=== PATIENT | female | born 1935 | race Caucasian/White ===

== ENCOUNTER 2022-02-22 19:19 | Emergency (ER) | payer MEDICARE, SELFPAY ==
[2022-02-22 19:34] VITALS: BP 180/82; PULSE 89; RESP 16; TEMP 36.7; O2SAT 99; BMI 22.0
[2022-02-22 19:40] VITALS: BP 171/81; PULSE 87; RESP 16; O2SAT 95
[2022-02-22 20:00] VITALS: BP 168/78; PULSE 87; RESP 16; O2SAT 99
--- NOTE | 2022-02-22 20:08 | ED.GENADULT ---
HPI - General Adult General Chief complaint: Unspecified Complaint, Adult Stated complaint: blood pressure, blood in R eye Time Seen by Provider: 02/22/22 19:53 History of Present Illness HPI narrative: This 87-year-old female comes in with concern about elevated blood pressure and noticed that the medial aspect of her right eye has some redness. She states that she feels completely normal and has no complaints of pain or any other symptoms. She is taking antihypertensive medication and following with her primary doctor who is watching her blood pressures. Related Data Home Medications Medication Instructions Recorded Confirmed amlodipine 5 mg tablet mg 02/22/22 atorvastatin 10 mg tablet mg 02/22/22 Previous Rx's Medication Instructions Recorded gabapentin 100 mg capsule 100 - 300 mg PO .HS #90 cap 02/21/22 Allergies Allergy/AdvReac Type Severity Reaction Status Date / Time No Known Drug Allergies Allergy Verified 02/22/22 19:38 Review of Systems Status of ROS: Reports: 10 or more systems reviewed and unremarkable except as noted in History and below Narrative: Constitutional: No fevers, no weight gain or loss. Eyes: No discharge. No vision changes. The medial aspect of the right eye has redness. HENT: No congestion, no sore throat, no ear pain. Cardiovascular: No chest pain, no palpitations. Respiratory: No shortness of breath, no wheezes, no cough. Gastrointestinal: No abdominal pain, no vomiting, no diarrhea. Genitourinary: No dysuria, no hematuria. Musculoskeletal: Normal range of motion. Skin: No rashes, no pruritis. Neurological: No dizziness, weakness, sensory change, speech change. Endo/Heme/Allergies: No bruising or bleeding. No polydipsia. Pysch: no suicidality, no anxiety, no insomnia. All other systems reviewed and are negative. [facility] Social History Smoking Status: Never smoker How often do you have a drink containing alcohol: never AUDIT-C Alcohol total score: 0 Non-prescribed substance use: denies use Exam Narrative: Exam Narrative: Constitutional: Well-developed, well-nourished, no acute distress. HEENT: Normocephalic, atraumatic. The right eye has a subconjunctival hematoma on the medial aspect. The iris and pupil appear normal. Funduscopic exam bilaterally is normal. Neck: Normal range of motion. Nontender. Supple. Heart: Regular. No murmurs. Normal rate. Intact distal pulses. Lungs: Clear to auscultation. No chest discomfort. No wheezes, rhonchi, or rales. Abdomen: Normal bowel sounds. Nontender. No rebound tenderness. Genitalia: Deferred. Back: No midline tenderness. Normal range of motion. Extremities: Normal range of motion. No injury. Skin: Intact. No rash. Warm. No erythema or pallor. Neurologic: No altered sensation. No weakness. Alert and oriented. Psychiatric: No suicidality. No anxiety or depression. No insomnia. Nursing notes and vitals signs are reviewed. Const: Vital Signs, click to edit/add: Vital Signs - 24 hr 02/22/22 19:34 Temperature 98.1 F Pulse Rate [Left P ulse Oximeter] 89 Respiratory Rate 16 Blood Pressure [Ri ght Upper Arm] 180/82 H Pulse Oximetry 99 Course Vital Signs Vital signs: Initial Vital Signs Temperature 98.1 F 02/22/22 19:34 Temperature Source Temporal Artery Scan 02/22/22 19:34 Pulse Rate 89 02/22/22 19:34 Respiratory Rate 16 02/22/22 19:34 Blood Pressure 180/82 H 02/22/22 19:34 Blood Pressure Mean 114 02/22/22 19:34 Blood Pressure Position Supine 02/22/22 19:34 Pulse Oximetry 99 02/22/22 19:34 Oxygen Delivery Method 02/22/22 19:34 Vital Signs Temperature 98.1 F 02/22/22 19:34 Pulse Rate 89 02/22/22 19:34 Respiratory Rate 16 02/22/22 19:34 Blood Pressure 180/82 H 02/22/22 19:34 Pulse Oximetry 99 02/22/22 19:34 Temperature 98.1 F 02/22/22 19:34 Pulse Rate 89 02/22/22 19:34 Respiratory Rate 16 02/22/22 19:34 Blood Pressure 180/82 H 02/22/22 19:34 Pulse Oximetry 99 02/22/22 19:34 Medical Decision Making MDM Narrative Medical decision making narrative: This patient comes in with redness in the medial aspect of her right eye and some elevated blood pressure. Her systolic blood pressure on arrival was 180 and this was trending downward slightly as she went about her stay here. I describe typical criteria used to diagnose and treat and manage elevated blood pressure. She will follow-up with her primary physician in this regard. As for the redness in her eye, she is having no visual changes in her funduscopic exam is normal. This is a subconjunctival hematoma that will resolve. Discharge Plan Discharge Clinical Impression: Subconjunctival hematoma Patient Disposition: Home, Self-Care Condition: Stable Instructions: Subconjunctival Hemorrhage (ED) Additional Instructions: Continue current plans. Record blood pressures at home and follow-up with primary physician. Prescriptions: No Action atorvastatin 10 mg tablet 0RF amlodipine 5 mg tablet 0RF gabapentin 100 mg capsule 100 - 300 mg PO .HS Qty: 90 6RF Follow Up/Referrals: Adela Contreras MD [Primary Care Provider] - Stand Alone Forms: [facility] Instructions
== END 2022-02-22 20:19 | disposition home or self-care (01) ==
PROVIDERS: Emergency Provider Emergency Medicine Emergency Medical Services; PCP Family Medicine
DX: H11.31 Conjunctival hemorrhage, right eye (principal); I10 Essential (primary) hypertension
CPT/HCPCS: 99283; 99284

== ENCOUNTER 2022-04-13 13:45 | Outpatient (RCR) | payer MEDICARE, SELFPAY ==
--- NOTE | 2022-02-23 10:56 | PT.OPEX ---
PT [place] [facility] Eval PT [facility] Out[facility] Eval Start: 02/23/22 07:24 Freq: Status: Active Protocol: Document 02/23/22 07:24 KELLI (Rec: 02/23/22 10:56 KELLI [id number]) E-Signed By Radha Henriquez, PT Physical Therapy Outpatient Evaluation Insurance Information Recert Due Date 05/18/22 Insurance Name Medicare B,[employer] Medical Diagnosis Lumbar and gluteal back pain Treating Diagnosis Low back and glut pain, right lateral hip shift, limited lumbar and B hip ROM, impaired balance Referring MD Contreras Subjective Subjective Patient presents to PT with primary complaint of low back and glut pain with gradual and insidious onset 3 months ago. Patient notes more painful when trying to go to sleep at night and getting up from a chair after sitting for extended periods. No pain with walking or throughout the day and feels better when she is on her feet. She denies radicular pain and denies bowel/bladder changes. She has not tried anything for the pain yet. She does report she had PT previously for her hip and was thinking about doing those exercises again but she was unsure if she should be doing those or not. Goals are to eliminate pain with sleeping and upon getting up to stand from prolong sitting position. PMH: unremarkable Pain Comments 01/19 worst Date of Last Physician Visit 01/24/22 Current Work Status [employer] Objective Other/Pertinent Objective Gait: R lateral hip shift, flexed hip posturing with limited terminal hip extension to neutral Standing posture: R lateral hip shift SL balance: -R 3 seconds without UE support with trendelenburg stance -L 11 seconds without UE support with neutral pelvic positioning Lumbar ROM: -Flx: malleoli, no pain -Ext: 50% minimal lumbar extension, hinges at hips, no pain however -R Sidebend: mid thigh, no pain or pull -L Sidebend: mid thigh, no pain or pull Slump test: - B LE ROM (R/L): -Hip Ext: 0/5 -Hip Flx: 120/120 -Hip ER: 15 significant pull in glut B -Hip IR: 5/5 Significant increased tone B glut med/piriformis Aaron test: + psoas B LE Strength (R/L): -Hip Abd: R: 5-/5, L: 5/5 -Hip Ext: R: 4+/5, L: 4+/5 -Hip Flx: R: 5/5, L: 5/5 Functional Test Performed & Score Oswestry: 7, 14% Assessment Assessment/Impression Patient is an 87 year old female presenting to physical therapy for evaluation and treatment of low back and gluteal pain with initial onset 3 months ago. Patient presents with Low back and glut pain, right lateral hip shift, limited lumbar and B hip ROM, impaired balance. These impairments are limiting the patients ability to sleep and get up from sitting position without aggravation of pain. Patient appears motivated to participate in PT and presents with good prognosis to improve mobility, strength, proprioception and return to functional activities with skilled physical therapy intervention. Primary Functional Limitations sleep and get up from sitting position without aggravation of pain. Plan of Care Rehabilitation Potential Good Physical Therapy Goals In 4 weeks (03/23/22) Pt will report 50% improvement in sleep quality Pt will demonstrate 5-10 deg improvement in hip ER in order to improve muscular restriction/pain Pt will be able to sit for 30 minutes with <2/10 hip and back pain upon standing In 10 weeks (05/04/22) Pt will exhibit 14% improvement in Modified Oswestry Outcome measure to demonstrate functional improvement and progress towards goals Pt will report 50-75% improvement in sleep quality Pt will be able to sit for 60 minutes with <2/10 hip and back pain upon standing Treatment Plan/Direct Interventions Gait Training,Ice/Cold/ Vasopneumatic,Joint Mobilization,Manual Therapy, Neuromuscular Re-ed,Self-Care/ Home Management,Therapeutic Activities,Therapeutic Exercises Frequency/Duration 1x/wk for 4-6 weeks with additional 4 sessions prn based on progress Patient Will Be Discharged From Therapy Completion of LTG(s), Independent w/HEP, Independently Progressing Evaluation Billing Untimed Code Treatment Minutes 22 Complexity Low Certification Information Initial Certification Date 02/23/22 Ending Certification Date 05/18/22
== END 2022-04-17 14:06 | disposition home or self-care (01) ==
PROVIDERS: PCP Family Medicine; Visit Provider Family Medicine
DX: M54.50 Low back pain, unspecified (principal); M25.551 Pain in right hip; R26.9 Unspecified abnormalities of gait and mobility; Z51.89 Encounter for other specified aftercare
CPT/HCPCS: 97110; 97140; 97161; 97535

== ENCOUNTER 2022-06-15 07:28 | Outpatient (CLI) | payer MEDICARE, SELFPAY ==
--- OUTSIDE RECORDS SUMMARY | 2022-06-15 07:31 | XMS_ITS | Clinical Summary ---
:1935 Author Organization [facility] [place] [address] Care Team Providers Name Role Phone Adela Contreras MD Primary Care Provider Allergies Active Allergy Reactions Severity Noted Date Comments House Dust Itching 01/02/2019 Grass Pollen Cough 01/02/2019 Mold Cough 01/02/2019 Medications Medication Sig Dispensed Refills Start Date End Date Status CALCIUM 600 + D 600 MG-125 2 po daily 0 12/30/2006 Active UNIT TAB celecoxib (CELEBREX) 200 0 07/25/2017 Active mg capsule gabapentin (NEURONTIN) 100 0 08/16/2017 Active mg capsule atorvastatin (LIPITOR) 10 0 08/09/2017 Active mg tablet pantoprazole (PROTONIX) 40 0 08/27/2017 Active mg delayed-release tablet aspirin-calcium carbonate Daily 0 Active 81 mg-300 mg calcium(777 mg) tab Biotin 10,000 mcg capsule 0 Active calcium Twice A Day 0 Active carbonate-cholecalciferol, 600mg-200 units, (CALCIUM 600 WITH VITAMIN D3) tablet multivitamin-minerals Daily 0 Active therapeutic (THERAGRAN-M) tablet Vitamin E 100 unit/0.25 mL 0 Active drop amLODIPine (NORVASC) 2.5 0 11/10/2018 Active mg tablet Surgical ShoeIndications: For home use. 1 unit 0 01/06/2019 Active Hammer toe, unspecified laterality Active Problems Problem Noted Date Hammertoe 01/05/2019 Hammertoe of right foot 01/05/2019 Routine adult health maintenance 05/05/2018 Overview: Colonoscopy 04/2018 normal, no follow up needed Abdominal pain, epigastric 12/30/2006 Other and unspecified hyperlipidemia Esophageal reflux Immunizations Name Administration Dates Next Due Influenza, IIV3 (Age >=3 years) 06/12/2006 Td (Age >=7 Years) 10/05/2002 Family History Medical History Relation Name Comments Cancer Brother Bladder CA Cancer Father Sinuses in 80's Cancer-breast Sister Relation Name Status Comments Brother Father Sister Social History Tobacco Use Types Packs/Day Years Used Date Never Smoker Smokeless Tobacco: Never Used Tobacco Cessation: Counseling Given: Yes Alcohol Use Standard Drinks/Week Comments No 0 (1 standard drink = 0.6 oz pure alcoho l) Sex Assigned at Date Recorded Not on file Obstetrics History Last Filed Vital Signs Vital Sign Reading Time Taken Comments Blood Pressure 142/78 08/24/2019 9:40 AM [facility] Pulse 84 08/24/2019 9:40 AM [employer] Temperature 36.3 ??C (97.3 ??F) 01/06/2019 12:40 PM CDT Respiratory Rate 16 08/24/2019 9:40 AM [employer] Oxygen Saturation 98% 01/06/2019 1:10 PM CDT Inhaled Oxygen Concentration - - Weight 60.3 kg (132 lb 15 oz) 01/06/2019 8:47 AM CDT Height 165.1 cm (5' 5) 01/02/2019 11:44 AM CDT Body Mass Index 22.12 01/02/2019 11:44 AM CDT Plan of Treatment Health Maintenance Due Date Last Done Comments COVID-19 vaccine series (#1) 1935 Tdap 02/18/1946 Depression screening for age 12+ 1948 BMI (ht and wt on same day) for age 18+ 02/18/1954 Zoster (shingles) series for age 50+ (1 of 2) 02/18/1986 DEXA/DXA scan for age 65+ 02/18/2001 Medicare Wellness for age 65+ 02/18/2001 Pneumococcal series for age 65+ (1 - PCV) 02/18/2001 Tetanus booster 10/05/2012 10/05/2002 Influenza for age 65+ 04/12/2022 06/12/2006 Results Not on filefrom Last 3 Months Insurance Payer Benefit Plan / Subscriber ID Effective Dates Phone Addre ss Type Group UCARE MR [place] MEDICARE [id number] 2019-Present [address] [place] [id number] Advance Directives Latest Code Status on File Code Status Date Activated Date Inactivated Comments Full Code 01/06/2019 8:29 AM 01/06/2019 3:29 PM Care Teams Critical Care Rn Relationship Specialty Start Date End Date Adela Contreras MD PCP - General Family Practice 09/03/171999 [place], [place] [id number]
--- NOTE | 2022-06-15 07:45 | CRLHL7_ITS ---
For Patients: As a result of the Century Cures Act, medical imaging exams and procedure reports are released immediately into your electronic medical record. You may view this report before your referring provider. If you have questions, please contact your health care provider. BILATERAL SCREENING MAMMOGRAM WITH COMPUTER-AIDED DETECTION AND TOMOSYNTHESIS TECHNIQUE: CC and MLO views were obtained. These mammographic images have been obtained using full-field digital technique. These mammographic images were interpreted with the benefit of computer-aided detection. Breast Tomosynthesis was used in this interpretation. COMPARISON FILM: 05/02/21, 04/15/20, 03/09/19. FINDINGS: The breasts are heterogeneously dense, which may obscure small masses IMPRESSION: There is no radiographic evidence for malignancy. ASSESSMENT: BI-RADS Category 1: Negative RECOMMENDATION: Routine screening mammogram in 1 year. A lay language report of this examination will be provided to the patient. Jas Ríos M.D. Diagnostic Radiologist [email or web address] TJ/sasha Transcribed: 2:44 p.m. MOSHE/Dictated by: Jas Ríos MD @ 06/15/2022 8:43:00 AM (Electronically Signed)
== END 2022-06-15 07:29 | disposition home or self-care (01) ==
LOC: MAMMO 07:30
PROVIDERS: PCP Family Medicine; Visit Provider Family Medicine
DX: Z12.31 Encounter for screening mammogram for malignant neoplasm of breast (principal); R92.2 Inconclusive mammogram
CPT/HCPCS: 77063; 77067

== ENCOUNTER 2022-09-10 08:22 | Outpatient (CLI) | payer MEDICARE, SELFPAY ==
[2022-09-10 12:28] LABS: Albumin* 4.4 g/dL (3.3-5.0)
[2022-09-10 12:29] LABS: Chloride* 105 mmol/L (96-114); Sodium* 140 mmol/L (135-149)
[2022-09-10 12:31] LABS: Alkaline Phosphatase* 71 U/L (40-150); Aspartate Amino Transferase* 41 U/L (12-35); Bilirubin Total* 0.5 mg/dL (0.1-1.5); Blood Urea Nitrogen* 18 mg/dL (7-30); Carbon Dioxide* 29 mmol/L (20-32); Cholesterol* 182 mg/dL (90-199); Estimated Glomerular Filt Rate 55 ml/min; Total Protein* 7.2 g/dL (6.0-8.3)
[2022-09-10 12:32] LABS: Alanine Aminotransferase* 39 U/L (4-35); Calcium* 9.7 mg/dL (8.4-10.6); Glucose* 91 mg/dL (60-115); Triglycerides* 77 mg/dL (40-149)
[2022-09-10 12:47] LABS: HDL Cholesterol* 117 mg/dL (>=50); LDL Cholesterol Calculated 50 mg/dL (<100)
[2022-09-12 12:48] LABS: Vitamin D 25 Hydroxy* 56 ng/mL (30-80)
== END 2022-09-10 08:23 | disposition home or self-care (01) ==
LOC: NFLDREF 08:23
PROVIDERS: PCP Family Medicine; Visit Provider Family Medicine
DX: Z00.00 Encounter for general adult medical examination without abnormal findings (principal); E78.5 Hyperlipidemia, unspecified; I10 Essential (primary) hypertension; M85.80 Other specified disorders of bone density and structure, unspecified site
CPT/HCPCS: 80053; 80061; 82306

== ENCOUNTER 2022-09-19 15:15 | Outpatient (CLI) | payer MEDICARE, SELFPAY ==
--- NOTE | 2022-09-19 15:30 | CRLHL7_ITS ---
For Patients: As a result of the Century Cures Act, medical imaging exams and procedure reports are released immediately into your electronic medical record. You may view this report before your referring provider. If you have questions, please contact your health care provider. DXA BONE MINERAL DENSITY STUDY Current height (in): 64.0. Weight (lb): 132.0. Menopause age: 56. Ethnicity: White. 1. Have you had a previous hip or vertebral fracture? No. 2. Have you had any fractures during your adult life which did not result from significant trauma (e.g., auto accident)? No. 3. Did either of your parents have a hip fracture? No. 4. Do you smoke? No. 5. Have you ever taken Glucocorticoids? No. 6. Do you have rheumatoid arthritis? No. 7. Do you have secondary osteoporosis? No. 8. Do you drink 3 or more alcoholic drinks per day? No. 9. Are you being treated for osteoporosis? No. 10. Have you ever taken any of the following medications: Actonel, Evista, Fosamax, Miacalcin, Reclast, Boniva, Forteo, HRT (i.e. estrogen/hormone therapy), Protelos, Prolia, Vitamin D, Calcium, other ??? please specify. ANSWER: Yes, vitamin D, calcium. 11. Do you have any of the following medical conditions: Anorexia or bulimia, asthma or emphysema, end stage renal disease, hyperparathyroidism, any seizure disorders, cancer, inflammatory bowel diseases, hysterectomy, other ??? please specify. ANSWER: No. 12. What was your maximum height (inches)? 67. 13. Do you perform weight bearing exercise regularly? Yes. 14. Do you regularly consume dairy products? Yes. 15. Do you drink caffeinated beverages? Yes. 16. At what age did your period start? 15. 17. Are you premenopausal? No. 18. How many full term pregnancies have you had? 2. 19. Have you ever missed your period for more than 6 months in a row (not including or menopause)? No. TECHNIQUE: Bone mineral density study was performed using the [employer]. FINDINGS: The results of the study expressed as bone mineral density (BMD) are as follows: Lumbar spine L1 to L4: BMD: 1.046 g/cm2. T-score: 0.0. Z-score: 2.9. Neck Left: BMD: 0.708 g/cm2. T-score: -1.3. Z-score: 1.3. Right: BMD: 0.669 g/cm2. T-score: -1.6. Z-score: 0.9. Total Left: BMD: 0.738 g/cm2. T-score: -1.7. Z-score: 0.7. Right: BMD: 0.738 g/cm2. T-score: -1.7. Z-score: 0.7. IMPRESSION: Osteopenia. *Comparison exams done prior to 01/2020 were performed on different unit, Kior. COMPARISON: Compared with scan of 03/09/2019, the bone mineral density has decreased by 0.4 percent at the spine and decreased by 0.2 percent at the hip. Compared with scan of 01/26/2016, the bone mineral density has increased by 4.2 percent at the spine and increased by 1.0 percent at the hip. FRAX 10-year Fracture Risk Major Osteoporotic Fracture: 12 percent Hip Fracture: 3.7 percent Reported Risk Factors: [place] () Neck BMD=0.669, BMI=22.7 Jas Ríos M.D. Diagnostic Radiologist [email or web address] TJ/sidra / be/Dictated by: Jas Ríos MD @ 09/20/2022 12:46:00 PM (Electronically Signed)
== END 2022-09-19 15:16 | disposition home or self-care (01) ==
LOC: RAD 15:16
PROVIDERS: PCP Family Medicine; Visit Provider Family Medicine
DX: M85.80 Other specified disorders of bone density and structure, unspecified site (principal)
CPT/HCPCS: 77080

== ENCOUNTER 2022-09-28 10:28 | Outpatient (CLI) | payer MEDICARE, SELFPAY ==
[2022-09-29 15:11] LABS: Cancer Antigen 125 8 U/mL (<=38)
== END 2022-09-28 10:29 | disposition home or self-care (01) ==
LOC: NFLDREF 10:29
PROVIDERS: PCP Family Medicine; Visit Provider Obstetrics & Gynecology
DX: N83.201 Unspecified ovarian cyst, right side (principal)
CPT/HCPCS: 86304

== ENCOUNTER 2022-10-01 14:52 | Outpatient (CLI) | payer MEDICARE, SELFPAY ==
--- NOTE | 2022-10-01 15:00 | CRLHL7_ITS ---
For Patients: As a result of the Century Cures Act, medical imaging exams and procedure reports are released immediately into your electronic medical record. You may view this report before your referring provider. If you have questions, please contact your health care provider. CLINICAL HISTORY: Follow-up right ovarian cyst Comparison: 09/22/2021 TECHNIQUE: 2D lazo scale and color Doppler images were acquired of the pelvis using a transvaginal approach. FINDINGS: On transvaginal imaging, there is a stable echogenic fibroid within the left side of the uterus measuring 1.1 x 1.3 x 1.0 cm. Additional hypoechoic fibroid is present on the right measuring 1.1 x 0.9 x 1.2 cm. The endometrial lining appears normal and measures 2 mm in thickness. The left ovary is not visualized and the right ovary measures 6.4 x 4.3 x 5.9 cm. The right ovary demonstrates normal arterial and venous blood flow on color Doppler analysis. Simple anechoic right ovarian cyst is again noted without solid nodule. This measures 6.0 x 5.4 x 4.0 cm. IMPRESSION: Simple right ovarian cyst measuring 6.0 x 5.4 x 4.0 cm. Previously, this measured 5.9 x 4.4 x 5.2 cm. Dictated by Jas Ríos MD @ 10/02/2022 10:25:54 AM (Electronically Signed)
== END 2022-10-01 14:53 | disposition home or self-care (01) ==
LOC: US 14:53
PROVIDERS: PCP Family Medicine; Visit Provider Obstetrics & Gynecology
DX: N83.201 Unspecified ovarian cyst, right side (principal)
CPT/HCPCS: 76830

== ENCOUNTER 2023-03-13 08:35 | Outpatient (CLI) | payer MEDICARE, SELFPAY | END 2023-03-13 08:36 | disposition home or self-care (01) | LOC: NFLDREF 08:36 | PROVIDERS: PCP Family Medicine; Visit Provider Family Medicine | DX: I10 Essential (primary) hypertension (principal); R73.03 Prediabetes; E78.5 Hyperlipidemia, unspecified | CPT/HCPCS: 80053 ==

== ENCOUNTER 2023-04-17 13:34 | Outpatient (CLI) | payer MEDICARE, SELFPAY ==
--- NOTE | 2023-04-17 14:00 | MR_ITS ---
[facility] [address] [facility] [address] Phone:?[phone] Fax:?[phone] Referring Physician Information: Evan Trinidad M.D. [address] [facility] [address] Phone:?[phone] Fax:?[phone] Patient:Meme Bradley D.O.B:?1935 Sex:?Female Phone:?[phone] [facility] MRN:?[id number] Exam Date:?04/17/2023 EXAM: MRI of the RIGHT SHOULDER, without contrast CLINICAL: Female, 88 years old, with right shoulder pain. INDICATION: Evaluate rotator cuff for tear. PRIOR SURGERY: None reported. PLAIN FILMS: None available. COMPARISONS: No prior MRIs available. TECHNICAL: Using a 1.5T MR scanner and a localizing shoulder surface coil: 3.0 mm?coronal obliques: PD, T2, STIR 3.0 mm?sagittal obliques: PD, T2 3.0 mm?axials: PD, T2 SEDATION: None. CONTRAST: None. IMPRESSION: 1. Approximately 10 x 10 mm AP by ML dimension ill-defined full-thickness tear of the distal insertional footprint of the mid supraspinatus tendon with mild muscle atrophy. 2. Extension of tendinopathy and some partial tear/attenuation into the adjacent anterior infraspinatus tendon without full-thickness tear. 3. No biceps tendon pathology. 4. No defined labral tears. 5. No convincing significant-appearing glenohumeral chondromalacia/osteoarthritis. FINDINGS: Glenohumeral joint: Effusion/cyst: Small glenohumeral joint effusion. No paralabral ganglion cyst. Articular cartilage: Humeral head: No osteochondral abnormalities. Glenoid: No osteochondral abnormalities. Loose bodies: No demonstrable loose bodies. Inferior glenohumeral ligament/axillary recess: The axillary recess is normal in thickness and signal. No evidence of adhesive capsulitis or capsuloligamentous injury. Labrum: No labral tears. Bones: Proximal humerus: Slight cortical irregularity and mild subcortical bone marrow edema of the anterior greater tuberosity and humeral sulcus underlies distal insertional supraspinatus tendinopathy/tear detailed below. Also mild marrow edema and small subchondral cysts of the posterior humeral sulcus underlies less prominent distal insertional infraspinatus tendinosis. The proximal humerus is otherwise intact. No humeral Hill-Sachs or reverse Hill- Sachs lesion/impaction or contusion. Glenoid: No fracture or marrow edema/pathology. No osseous Bankart lesion. Coracoacromial arch: Acromion morphology: Slight type II acromion without defined subacromial spur/enthesophyte. No mesoacromion or preacromion. Acromiohumeral space: Within normal limits at a minimum of 6 mm. Coracohumeral space: Within normal limits. Acromioclavicular joint: Joint: Mild towards moderate chronic widening of the acromioclavicular joint perhaps presented residua of the distal clavicle excision although the patient information sheet does not designate prior surgery. If that is the case, this could perhaps represent chronic residua of AC joint sprain injury. No convincing acute injury or ongoing reactive change at this time. Ligaments: Inferior acromioclavicular ligaments appear deficient associated with the above observation. Coracoclavicular ligaments are intact. Bursae: Subacromial-subdeltoid: Marked subacromial-subdeltoid bursal fluid/bursitis although perhaps also associated with the rotator cuff tear detailed below. Subcoracoid: Prominent fluid in the subcoracoid space as well. Rotator cuff and muscles/tendons: Supraspinatus: Up to approximately 10 mm AP dimension irregularly margined full- thickness tear of the distal insertional footprint of the anterior to mid supraspinatus tendon, perhaps sparing minimal amount of its anterior-most fibers as well as more posterior aspect, superimposed upon mild towards moderate subcutaneous tendinosis/tendinopathy (coronal images 9-13; sagittal images 9-4). Associated up to approximately 10 mm of maximal tendon fiber retraction/ML dimension. Mild decreased supraspinatus muscle bulk and minor Goutallier stage 1-2 fatty infiltration. Infraspinatus: Moderate towards marked tendinopathy extends into adjacent anterior through mid aspects of the infraspinatus tendon expected to be associated with some deep surface into intrasubstance wear/partial tear, but without full-thickness tear. No tendon or myotendinous junction retraction. No muscle atrophy. Teres minor: No tendinopathy, tear or atrophy. Subscapularis: No tendinopathy, tear or atrophy. Deltoid: No strain or atrophy. Biceps tendon, long head: The long head of the biceps tendon is present within the bicipital groove. Intra-articular and extra-articular segments are intact without tendinopathy or displacement. Axilla: No axillary masses or abnormally enlarged lymphadenopathy. [facility] Electronically signed on 04/18/2023 8:58:00 AM by Brandon Ortiz M.D.
== END 2023-04-17 13:35 | disposition home or self-care (01) ==
LOC: MRI 13:35
PROVIDERS: PCP Family Medicine; Visit Provider Orthopaedic Surgery Sports Medicine
DX: M25.511 Pain in right shoulder (principal); M75.101 Unspecified rotator cuff tear or rupture of right shoulder, not specified as traumatic
CPT/HCPCS: 73221

== ENCOUNTER 2023-04-18 13:43 | Observation (INO) | payer MEDICARE, SELFPAY ==
[2023-04-18 13:51] VITALS: BP 186/82; PULSE 110; RESP 18; TEMP 37.1; O2SAT 100; BMI 22.0
[2023-04-18] MEDS: AMPICILLIN/SULBACTAM 3 GM in 0.9 % SODIUM CHLORIDE Mini-bag 100 ML IVPB ×2 (14:49→20:04)
--- NOTE | 2023-04-18 14:52 | ED.GENADULT ---
HPI - General Adult General Date Seen: 04/18/23 Chief complaint: Animal Bite Stated complaint: cat bite Time Seen by Provider: 04/18/23 14:01 Source: patient Mode of arrival: ambulatory Limitations: no limitations History of Present Illness HPI narrative: Patient is a 88-year-old female presented emergency department for cat bite to her right hand. She states this occurred on Saturday. A cat belongs to her daughter and is not vaccinated for rabies but she states it is showing no signs of rabies at this time and is still in her daughter's possession. Patient states since the bite she has gained swelling erythema to base of the right thumb with a cat bite was and is noticing erythema going up her arm. Denies fevers, chills, weakness, numbness, headache, abdominal pain, diarrhea, constipation. Does state there is pain to the right hand. Related Data Home Medications Medication Instructions Recorded Confirmed famotidine 10 mg tablet 10 mg PO QDAY PRN 04/20/22 04/18/23 loratadine 10 mg tablet 10 mg PO QDAY 04/20/22 04/18/23 melatonin 10 mg capsule 10 mg PO QDAY 04/20/22 04/18/23 polyethylene glycol 3350 17 4 g PO BID 04/20/22 04/18/23 gram/dose oral powder (Miralax) sennosides 8.6 mg tablet (senna) 8.6 mg PO QDAY 04/20/22 04/18/23 biotin 10,000 mcg-keratin 100 mg 1 tab PO DAILY 03/13/23 04/18/23 tablet (Biotin Plus Keratin) calcium carbonate 600 mg-vitamin cap PO DAILY 03/13/23 04/18/23 D3 25 mcg (1,000 unit) capsule multivitamin with iron 1 tab PO QDAY 03/13/23 04/18/23 vitamin E (dl, acetate) 450 mg 450 mg PO QDAY 03/13/23 04/18/23 (1,000 unit) capsule gabapentin 300 mg capsule 300 mg PO QHS 04/02/23 04/18/23 Claritin 04/18/23 Pepcid Complete 04/18/23 Previous Rx's Medication Instructions Recorded amlodipine 5 mg tablet 5 mg PO DAILY #90 tabs 09/12/22 atorvastatin 10 mg tablet 10 mg PO .QHS #90 tabs 09/12/22 Allergies Allergy/AdvReac Type Severity Reaction Status Date / Time Dust Allergy Mild sneezing, Uncoded 04/09/23 09:55 itchy eyes, cough Grass Allergy Mild sneezing, Uncoded 04/09/23 09:55 itchy eyes, cough Molds & Smuts Allergy Mild sneezing, Uncoded 04/09/23 09:55 itchy eyes, cough Review of Systems Status of ROS: Reports: 10 or more systems reviewed and unremarkable except as noted in History and below [facility] Medical History (Updated 04/18/23 @ 16:42 by Gurvinder Simmnos, ) Right shoulder pain ?M25.511 - Pain in right shoulder (ICD-10) Neuropathy ?G62.9 - Polyneuropathy, unspecified (ICD-10) Epigastric pain (2019) ?R10.13 - Epigastric pain (ICD-10) Cyst of right ovary (02/2021) ?N83.201 - Unspecified ovarian cyst, right side (ICD-10) Constipation ?K59.00 - Constipation, unspecified (ICD-10) Chronic pain of toe of right foot (2017) ?M79.674 - Pain in right toe(s) (ICD-10) ?G89.29 - Other chronic pain (ICD-10) Lumbar degenerative disc disease ?M51.36 - Other intervertebral disc degeneration, lumbar region (ICD-10) Well woman exam (no gynecological exam) ?Z00.00 - Encounter for general adult medical examination without abnormal findings (ICD-10) Transient global amnesia (2008) ?G45.4 - Transient global amnesia (ICD-10) Stress at home ?F43.9 - Reaction to severe stress, unspecified (ICD-10) Prediabetes (2017) ?R73.03 - Prediabetes (ICD-10) Idiopathic pancreatitis (2003) ?K85.00 - Idiopathic acute pancreatitis without necrosis or infection (ICD-10) Hypertension ?I10 - Essential (primary) hypertension (ICD-10) Gastroesophageal reflux disease (05/25/09) ?K21.9 - Gastro-esophageal reflux disease without esophagitis (ICD-10) Ductal carcinoma in situ (DCIS) of right breast (1999) ?D05.11 - Intraductal carcinoma in situ of right breast (ICD-10) Biliary dyskinesia ?K82.8 - Other specified diseases of gallbladder (ICD-10) Peripheral neuropathy ?G62.9 - Polyneuropathy, unspecified (ICD-10) Surgical History History of hammertoe correction ?Z98.890 - Other specified postprocedural states (ICD-10) ?Z87.39 - Personal history of other diseases of the musculoskeletal system and connective tissue (ICD-10) History of endoscopy (08/2020) ?Z98.890 - Other specified postprocedural states (ICD-10) History of surgical removal of ganglion cyst (02/08/10) ?Z98.890 - Other specified postprocedural states (ICD-10) History of lumpectomy of right breast (1999) ?Z98.890 - Other specified postprocedural states (ICD-10) History of laparoscopic cholecystectomy (10/2020) ?Z90.49 - Acquired absence of other specified parts of digestive tract (ICD-10) History of colonoscopy ?Z98.890 - Other specified postprocedural states (ICD-10) History of cataract extraction ?Z98.49 - Cataract extraction status, unspecified eye (ICD-10) Family History Sister Breast cancer, Onset Age: 64 Father Cancer of maxillary sinus Maternal Grandmother Diabetes Brother Colon cancer, Onset Age: 78 Social History (Reviewed 04/09/23 @ 09:56 by Cristin Pandya ~ [facility], [facility]) Narrative: , 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 Moist mucous membranes. Neck: Symmetric, trachea midline, No thyromegaly. CVS: RRR, No murmurs or gallops. Peripheral pulses 2+ and equal in all extremities RESP: Unlabored respiratory effort. Clear to auscultation bilaterally. GI: Nontender/Nondistended, No rebound or guarding. MSK:Extremities w/o deformity, Normal Active ROM Skin: Warm, Dry. Swelling and erythema noted to the thenar absence of the right hand with 2 puncture wounds seen. there is lymphangitic streaking of the right arm seen. Neuro: Normal Muscle tone, No focal neurological deficits. Psych: Awake, Alert, & Oriented x3. Appropriate mood and affect. Const: Vital Signs, click to edit/add: Vital Signs - 24 hr 04/18/23 13:51 Temperature 98.8 F Pulse Rate [Right Pulse Oximeter] 110 H Respiratory Rate 18 Blood Pressure [Le ft Upper Arm] 186/82 H Pulse Oximetry 100 Course Vital Signs Vital signs: Initial Vital Signs Temperature 98.8 F 04/18/23 13:51 Temperature Source Temporal Artery Scan 04/18/23 13:51 Pulse Rate 110 H 04/18/23 13:51 Respiratory Rate 18 04/18/23 13:51 Blood Pressure 186/82 H 04/18/23 13:51 Blood Pressure Mean 116 H 04/18/23 13:51 Blood Pressure Position Sitting 04/18/23 13:51 Pulse Oximetry 100 04/18/23 13:51 Vital Signs Temperature 98.8 F 04/18/23 13:51 Pulse Rate 110 H 04/18/23 13:51 Respiratory Rate 18 04/18/23 13:51 Blood Pressure 186/82 H 04/18/23 13:51 Pulse Oximetry 100 04/18/23 13:51 Temperature 98.8 F 04/18/23 13:51 Pulse Rate 110 H 04/18/23 13:51 Respiratory Rate 18 04/18/23 13:51 Blood Pressure 186/82 H 04/18/23 13:51 Pulse Oximetry 100 04/18/23 13:51 Medical Decision Making [facility] Narrative Medical decision making narrative: Patient is a 88-year-old female presenting emergency department for a cat bite to her right hand. The bite was to the thenar eminence. This happened 3 days ago and now she is having worsening erythema and lymphangitic streaking up the arm. Denies any fevers or chills. Cat is not vaccinated for rabies but it can be monitored and thus she has not knee vaccinated for rabies at this time. Her last tetanus was this year. Cbc is BMP were ordered. Show she has a white count of 16. Along with her tachycardia she now meets SIRS criteria. Lactate and blood cultures were added. She is hypertensive at this time and I not believes she is requiring fluids. She has full movement of the left thumb and this does not appear to have flexor tenosynovitis. Although it is a hand infection with with streaking on the arm and there was concern things could get worse. She was given IV antibiotics. As a precautionary reason I believe it is important to keep her admitted. I spoke to the on-call hospitalist accepted her for admission. Patient agrees with this Lab Data Labs: Lab Results 04/18/23 04/18/23 Range/Units 14:54 15:49 WBC 16.73 H (4.50-11.00) K/uL RBC 4.25 (4.00-5.20) m/uL Hgb 13.0 (12.0-16.0) gm/dL Hct 40.2 (33.0-51.0) % MCV 95 (80-100) fL MCH 31 (26-34) pg MCHC 32 (32-36) gm/dL RDW Coeff of Suzi 13.3 (11.5-15.5) % Plt Count 351 (140-440) K/uL Neut % (Auto) 88.4 H (42.0-72.0) % Lymph % (Auto) 4.3 L (20-44) % Gooding % (Auto) 6.2 (0.0-11.0) % Eos % (Auto) 0.0 (0.0-7.0) % Baso % (Auto) 0.1 (0.0-3.0) % Neut # (Auto) 14.80 H (1.7-7.0) K/uL Lymph # (Auto) 0.70 L (0.90-2.90) K/uL Gooding # (Auto) 1.00 H (0.00-0.90) K/UL Eos # (Auto) 0.00 (0.00-0.50) K/uL Baso # (Auto) 0.00 (0.00-0.30) K/uL Abs Immat Gran (auto) 0.20 (0.00-0.30) K/uL Imm/Tot Granulo (auto) 1.0 % Sodium 138 (135-149) mmol/L Potassium 3.9 (3.6-5.1) mmol/L Chloride 99 (96-114) mmol/L Carbon Dioxide 26 (20-32) mmol/L Anion Gap 13 (7-15) mEq/L BUN 24 (7-30) mg/dL Creatinine 0.9 (0.5-1.5) mg/dL Estimated Creat Clear 35.66 Estimated GFR 62 ml/min Glucose 115 (60-115) mg/dL Lactate 1.0 (0.5-1.9) mmol/L Calcium 10.6 (8.4-10.6) mg/dL Discharge Plan Discharge Clinical Impression: Cat bite, Cellulitis of hand, right Patient Disposition: Admitted As Observation Condition: Stable
[2023-04-18 15:14] LABS: Basophils Percent Auto 0.1 % (0.0-3.0); Hematocrit 40.2 % (33.0-51.0); Lymphocytes Percent Auto 4.3 % (20-44); Mean Corpuscular HGB Conc 32 gm/dL (32-36); Mean Corpuscular Hemoglobin 31 pg (26-34); Mean Corpuscular Volume 95 fL (80-100); Monocytes Percent Auto 6.2 % (0.0-11.0); Neutrophils Percent Auto 88.4 % (42.0-72.0); Platelet Count* 351 K/uL (140-440); RDW Coefficient of Variation % 13.3 % (11.5-15.5); Red Blood Count 4.25 m/uL (4.00-5.20); White Blood Count* 16.73 K/uL (4.50-11.00)
[2023-04-18 15:15] LABS: Chloride* 99 mmol/L (96-114); Sodium* 138 mmol/L (135-149)
[2023-04-18 15:17] LABS: Slide Review Reflex No
[2023-04-18 15:18] LABS: Creatinine* 0.9 mg/dL (0.5-1.5); Est. Creatinine Clearance* 35.66; Estimated Glomerular Filt Rate 62 ml/min
[2023-04-18 15:19] LABS: Anion Gap 13 mEq/L (7-15); Blood Urea Nitrogen* 24 mg/dL (7-30); Calcium* 10.6 mg/dL (8.4-10.6); Carbon Dioxide* 26 mmol/L (20-32); Glucose* 115 mg/dL (60-115)
[2023-04-18 15:20] LABS: Potassium* 3.9 mmol/L (3.6-5.1)
--- NOTE | 2023-04-18 15:57 | P.IMHP_ITS ---
Hospitalist- H&P: HPI History of Present Illness Date Seen: 04/18/23 Chief complaint: cat bite Narrative: Yin Bradley is a 88 year old female who presented to the emergency room today at the behest of the urgent care after noting worsening erythema of her right upper extremity, 2 days post cat bite. She was cat sitting her daughter's cat Matty, and was bitten 3 days ago. She had a small area of erythema at that time, but minimal pain. She still has very little pain and does endorse full range of motion of her right hand, but today noted that the erythema was spreading proximally. She presented to the urgent care, but given rapid worsening of cellulitis, ER was recommended. ER course and findings: - White blood count 16, lactate and electrolytes wnl - given Unasyn IV - afebrile, blood cultures obtained and pending History updated below. PCP is Dr. Contreras locally. Review of Systems Status of ROS: Reports: 10 or more systems reviewed and unremarkable except as noted in History and below Narrative: - full ROM of R hand with no pain - asymptomatic from her tachycardia (HR 100s in ED) [facility] Medical History (Updated 04/18/23 @ 17:41 by Valerie Garcia MD) Right shoulder pain ?M25.511 - Pain in right shoulder (ICD-10) Neuropathy ?G62.9 - Polyneuropathy, unspecified (ICD-10) Epigastric pain (2019) ?R10.13 - Epigastric pain (ICD-10) Cyst of right ovary (02/2021) ?N83.201 - Unspecified ovarian cyst, right side (ICD-10) Constipation ?K59.00 - Constipation, unspecified (ICD-10) Chronic pain of toe of right foot (2017) ?M79.674 - Pain in right toe(s) (ICD-10) ?G89.29 - Other chronic pain (ICD-10) Lumbar degenerative disc disease ?M51.36 - Other intervertebral disc degeneration, lumbar region (ICD-10) Well woman exam (no gynecological exam) ?Z00.00 - Encounter for general adult medical examination without abnormal findings (ICD-10) Transient global amnesia (2008) ?G45.4 - Transient global amnesia (ICD-10) Stress at home ?F43.9 - Reaction to severe stress, unspecified (ICD-10) Prediabetes (2018) ?R73.03 - Prediabetes (ICD-10) Idiopathic pancreatitis (2003) ?K85.00 - Idiopathic acute pancreatitis without necrosis or infection (ICD- 10) Hypertension ?I10 - Essential (primary) hypertension (ICD-10) Gastroesophageal reflux disease (05/25/09) ?K21.9 - Gastro-esophageal reflux disease without esophagitis (ICD-10) Ductal carcinoma in situ (DCIS) of right breast (1999) ?D05.11 - Intraductal carcinoma in situ of right breast (ICD-10) Biliary dyskinesia ?K82.8 - Other specified diseases of gallbladder (ICD-10) Peripheral neuropathy ?G62.9 - Polyneuropathy, unspecified (ICD-10) Surgical History History of hammertoe correction ?Z98.890 - Other specified postprocedural states (ICD-10) ?Z87.39 - Personal history of other diseases of the musculoskeletal system and connective tissue (ICD-10) History of endoscopy (08/2020) ?Z98.890 - Other specified postprocedural states (ICD-10) History of surgical removal of ganglion cyst (02/08/10) ?Z98.890 - Other specified postprocedural states (ICD-10) History of lumpectomy of right breast (1999) ?Z98.890 - Other specified postprocedural states (ICD-10) History of laparoscopic cholecystectomy (10/2020) ?Z90.49 - Acquired absence of other specified parts of digestive tract (ICD- 10) History of colonoscopy ?Z98.890 - Other specified postprocedural states (ICD-10) History of cataract extraction ?Z98.49 - Cataract extraction status, unspecified eye (ICD-10) Family History Sister Breast cancer, Onset Age: 64 Father Cancer of maxillary sinus Maternal Grandmother Diabetes Brother Colon cancer, Onset Age: 78 Social History (Updated 04/18/23 @ 17:39 by Valerie Garcia MD) Narrative: Lives with Jordan in [place], 2 adult children (daughter Judy would be medical decision maker if needed). Requests full treatment of reversible medical conditions, DNR/DNI. 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 at [employer] non-smoker rarely consumes alcohol exercises 5-6 times per week- walks 35-40 min Smoking Status: Never smoker How often do you have a drink containing alcohol: monthly or less AUDIT-C Alcohol total score: 1 Non-prescribed substance use: denies use Little interest or pleasure in doing things: not at all Feeling down, depressed, or hopeless: not at all Meds Home Medications and Allergies Home Medications Medication Instructions Recorded Confirmed Type famotidine 10 mg tablet 10 mg PO QDAY PRN 04/20/22 04/18/23 History melatonin 10 mg capsule 10 mg PO QDAY 04/20/22 04/18/23 History polyethylene glycol 3350 17 4 g PO BID 04/20/22 04/18/23 History gram/dose oral powder (Miralax) biotin 10,000 mcg-keratin 100 mg 1 tab PO DAILY 03/13/23 04/18/23 History tablet (Biotin Plus Keratin) calcium carbonate 600 mg-vitamin 1 cap PO DAILY 03/13/23 04/18/23 History D3 25 mcg (1,000 unit) capsule multivitamin with iron 1 tab PO QDAY 03/13/23 04/18/23 History vitamin E (dl, acetate) 450 mg 450 mg PO DAILY 03/13/23 04/18/23 History (1,000 unit) capsule gabapentin 300 mg capsule 300 mg PO QHS 04/02/23 04/18/23 History loratadine 10 mg tablet 10 mg PO DAILY 04/18/23 04/18/23 History Allergies Allergy/AdvReac Type Severity Reaction Status Date / Time Dust Allergy Mild sneezing, Uncoded 04/09/23 09:55 itchy eyes, cough Grass Allergy Mild sneezing, Uncoded 04/09/23 09:55 itchy eyes, cough Molds & Smuts Allergy Mild sneezing, Uncoded 04/09/23 09:55 itchy eyes, cough Exam Narrative: Exam Narrative: GEN: Alert and delightful, sitting up in bed and answering questions appropriately, nontoxic HEENT: EOMIs bilaterally, no scleral icterus CV: RRR (rate low 100s during my exam - patient asymptomatic). No concerning murmurs, rubs, or gallops R: LCTA bilaterally without concerning wheezing, air movement adequate Ext: Full range of motion of right hand without any discomfort, no crepitus or ttp Skin: Erythema noted over palmar aspect of right hand that streaks and extends proximally into axilla Neuro: Nonfocal, normal peripheral pulses and sensation of RUE Psych: Appropriate Const: Vital Signs, click to edit/add: Vital Signs - 24 hr 04/18/23 13:51 Temperature 98.8 F Pulse Rate [Right Pulse Oximeter] 110 H Respiratory Rate 18 Blood Pressure [Le ft Upper Arm] 186/82 H Pulse Oximetry 100 Hospitalist - H&P: Result Labs Labs: Short CBC 04/18/23 Range/Units 14:54 WBC 16.73 H (4.50-11.00) K/uL Hgb 13.0 (12.0-16.0) gm/dL Hct 40.2 (33.0-51.0) % Plt Count 351 (140-440) K/uL BMP 04/18/23 14:54 Sodium 138 Potassium 3.9 Chloride 99 Carbon Dioxide 26 BUN 24 Creatinine 0.9 Glucose 115 Calcium 10.6 Assessment and Plan Assessment and plan (1) Cat bite: Problem comment: - TDAP updated - notably, cat was not vaccinated against rabies but has shown no signs or symptoms of illness; it is in the care of family and will be monitored Status: Acute (2) Cellulitis of hand, right: Problem comment: - continue Unasyn, follow white blood count and inflammatory markers Status: Acute Plan - per above - SCDs and Lovenox for ppx - DNR/DNI
[2023-04-18 17:33] VITALS: BP 182/99; PULSE 114; RESP 18; TEMP 37.9; O2SAT 98; BMI 22.0
[2023-04-18 19:27] VITALS: TEMP 38.4
[2023-04-18] MEDS: ACETAMINOPHEN 325 MG TABLET 975 MG PO (19:27)
[2023-04-18 19:31] VITALS: BP 153/75; PULSE 101; RESP 18; TEMP 38.4; O2SAT 98
[2023-04-18] MEDS: MELATONIN 3 MG TABLET 9 MG PO (20:18)
[2023-04-18] MEDS: GABAPENTIN 300 MG CAPSULE PO (20:19)
[2023-04-18] MEDS: ATORVASTATIN 10 MG TABLET PO (20:19)
[2023-04-18] MEDS: SODIUM CHLORIDE 0.9 % (FLUSH) 10 ML SYRINGE 5 ML IVF (20:20)
[2023-04-18 21:16] VITALS: TEMP 37.1
[2023-04-19 02:06] VITALS: BP 127/64; PULSE 77; RESP 16; TEMP 37.5; O2SAT 95
[2023-04-19] MEDS: AMPICILLIN/SULBACTAM 3 GM in 0.9 % SODIUM CHLORIDE Mini-bag 100 ML IVPB ×3 (02:07→14:45)
[2023-04-19 05:57] VITALS: RESP 18; TEMP 37.2
[2023-04-19 06:18] LABS: Lactate* 0.6 mmol/L (0.5-1.9)
[2023-04-19 06:23] LABS: Basophils Percent Auto 0.1 % (0.0-3.0); Eosinophils Percent Auto 0.1 % (0.0-7.0); Hematocrit 32.7 % (33.0-51.0); Hemoglobin* 10.9 gm/dL (12.0-16.0); Immature Granulocytes Pct Auto 0.3 %; Lymphocytes Percent Auto 11.8 % (20-44); Mean Corpuscular HGB Conc 33 gm/dL (32-36); Mean Corpuscular Hemoglobin 31 pg (26-34); Mean Corpuscular Volume 93 fL (80-100); Monocytes Percent Auto 8.9 % (0.0-11.0); Neutrophils Percent Auto 78.8 % (42.0-72.0); Platelet Count* 271 K/uL (140-440); RDW Coefficient of Variation % 13.5 % (11.5-15.5); Red Blood Count 3.52 m/uL (4.00-5.20); White Blood Count* 14.36 K/uL (4.50-11.00)
[2023-04-19 06:26] LABS: Slide Review Reflex No
[2023-04-19 06:43] LABS: Chloride* 100 mmol/L (96-114); Potassium* 3.9 mmol/L (3.6-5.1); Sodium* 134 mmol/L (135-149)
[2023-04-19 06:46] LABS: Creatinine* 0.9 mg/dL (0.5-1.5); Est. Creatinine Clearance* 35.66; Estimated Glomerular Filt Rate 62 ml/min
[2023-04-19 06:47] LABS: Anion Gap 7 mEq/L (7-15); Blood Urea Nitrogen* 18 mg/dL (7-30); Calcium* 9.6 mg/dL (8.4-10.6); Carbon Dioxide* 27 mmol/L (20-32); Glucose* 106 mg/dL (60-115)
[2023-04-19 06:50] LABS: C Reactive Protein* 6.9 mg/dL (0.5-1.0)
--- NOTE | 2023-04-19 06:56 | PC.NURSE ---
[id number]: Patient pleasant and cooperative with cares. Denies pain. Independent in room. Erythema on R. arm and hand receding within previously drawn line. Denies N/V. Eating and voiding. Appeared to rest well during noc.
--- NOTE | 2023-04-19 07:10 | PM.ORCN ---
History of Present Illness HPI Time Seen by Provider: 06:50 Date Seen: 04/19/23 Consult date: 04/19/23 Requesting physician: Valerie Garcia Consult reason: other Chief complaint: cat bite Narrative: Yin presented to the ED on Saturday following a right hand cat bite that occurred on Saturday (04/15). Associated symptoms at the time included: erythematous streaking (right hand extending to right axilla), excessive warmth, tenderness near cat bite (dorsal base of the right thumb) and diffuse swelling. Yin is pleased to report her redness and tenderness has improved since initiation of her antibiotics (Unasyn IV). This morning, she reports mild right thumb pain and mild proximal right volar forearm pain. Denies feeling feverish, chills. Swelling has significantly improved in comparison to yesterday. Right hand dominant. [facility] Medical History (Updated 04/18/23 @ 17:41 by Valerie Garcia MD) Right shoulder pain ?M25.511 - Pain in right shoulder (ICD-10) Neuropathy ?G62.9 - Polyneuropathy, unspecified (ICD-10) Epigastric pain (2019) ?R10.13 - Epigastric pain (ICD-10) Cyst of right ovary (02/2021) ?N83.201 - Unspecified ovarian cyst, right side (ICD-10) Constipation ?K59.00 - Constipation, unspecified (ICD-10) Chronic pain of toe of right foot (2017) ?M79.674 - Pain in right toe(s) (ICD-10) ?G89.29 - Other chronic pain (ICD-10) Lumbar degenerative disc disease ?M51.36 - Other intervertebral disc degeneration, lumbar region (ICD-10) Well woman exam (no gynecological exam) ?Z00.00 - Encounter for general adult medical examination without abnormal findings (ICD-10) Transient global amnesia (2008) ?G45.4 - Transient global amnesia (ICD-10) Stress at home ?F43.9 - Reaction to severe stress, unspecified (ICD-10) Prediabetes (2018) ?R73.03 - Prediabetes (ICD-10) Idiopathic pancreatitis (2003) ?K85.00 - Idiopathic acute pancreatitis without necrosis or infection (ICD-10) Hypertension ?I10 - Essential (primary) hypertension (ICD-10) Gastroesophageal reflux disease (05/25/09) ?K21.9 - Gastro-esophageal reflux disease without esophagitis (ICD-10) Ductal carcinoma in situ (DCIS) of right breast (1999) ?D05.11 - Intraductal carcinoma in situ of right breast (ICD-10) Biliary dyskinesia ?K82.8 - Other specified diseases of gallbladder (ICD-10) Peripheral neuropathy ?G62.9 - Polyneuropathy, unspecified (ICD-10) Surgical History History of hammertoe correction ?Z98.890 - Other specified postprocedural states (ICD-10) ?Z87.39 - Personal history of other diseases of the musculoskeletal system and connective tissue (ICD-10) History of endoscopy (08/2020) ?Z98.890 - Other specified postprocedural states (ICD-10) History of surgical removal of ganglion cyst (02/08/10) ?Z98.890 - Other specified postprocedural states (ICD-10) History of lumpectomy of right breast (1999) ?Z98.890 - Other specified postprocedural states (ICD-10) History of laparoscopic cholecystectomy (10/2020) ?Z90.49 - Acquired absence of other specified parts of digestive tract (ICD-10) History of colonoscopy ?Z98.890 - Other specified postprocedural states (ICD-10) History of cataract extraction ?Z98.49 - Cataract extraction status, unspecified eye (ICD-10) Family History Sister Breast cancer, Onset Age: 64 Father Cancer of maxillary sinus Maternal Grandmother Diabetes Brother Colon cancer, Onset Age: 78 Social History (Updated 04/18/23 @ 17:39 by Valerie Garcia MD) Narrative: Lives with Jordan in [place], 2 adult children (daughter Judy would be medical decision maker if needed). Requests full treatment of reversible medical conditions, DNR/DNI. 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 non-smoker rarely consumes alcohol exercises 5-6 times per week- walks 35-40 min What is your current living situation?: I presently have a place to live Problems where you live: no known problems Problems where you live details: N/A In the past 12 months, utilities in danger of being shut off: no In the past 12 mos, have been you worried that your food would run out before you had money to buy more?: never true In the past 12 mos, the food you bought just didn't last and you didn't have money to buy more?: never true Smoking Status: Never smoker How often do you have a drink containing alcohol: monthly or less AUDIT-C Alcohol total score: 1 Non-prescribed substance use: denies use How often does anyone, including family, friends and others, physically hurt you: never How often does anyone, including family, friends and others, insult or talk down to you: never How often does anyone, including family, friends and others, threaten you with harm: never How often does anyone, including family, friends and others, scream or curse at you: never Little interest or pleasure in doing things: not at all Feeling down, depressed, or hopeless: not at all Meds Home Medications and Allergies Home Medications Medication Instructions Recorded Confirmed Type famotidine 10 mg tablet 10 mg PO QDAY PRN 04/20/22 04/18/23 History melatonin 10 mg capsule 10 mg PO QDAY 04/20/22 04/18/23 History polyethylene glycol 3350 17 4 g PO BID 04/20/22 04/18/23 History gram/dose oral powder (Miralax) biotin 10,000 mcg-keratin 100 mg 1 tab PO DAILY 03/13/23 04/18/23 History tablet (Biotin Plus Keratin) calcium carbonate 600 mg-vitamin 1 cap PO DAILY 03/13/23 04/18/23 History D3 25 mcg (1,000 unit) capsule multivitamin with iron 1 tab PO QDAY 03/13/23 04/18/23 History vitamin E (dl, acetate) 450 mg 450 mg PO DAILY 03/13/23 04/18/23 History (1,000 unit) capsule gabapentin 300 mg capsule 300 mg PO QHS 04/02/23 04/18/23 History loratadine 10 mg tablet 10 mg PO DAILY 04/18/23 04/18/23 History Allergies Allergy/AdvReac Type Severity Reaction Status Date / Time Dust Allergy Mild sneezing, Uncoded 04/09/23 09:55 itchy eyes, cough Grass Allergy Mild sneezing, Uncoded 04/09/23 09:55 itchy eyes, cough Molds & Smuts Allergy Mild sneezing, Uncoded 04/09/23 09:55 itchy eyes, cough Ortho Exam Narrative Exam Narrative: Right thumb/wrist/upper extremity exam: Small, pinpoint cat bite wound present over dorsal webspace between 1st and 2nd metacarpal. No flexed posturing of the right thumb. Nontender over FPL, EPL and EPB tendon sheaths. Mild tenderness over cat bite site. Denies pain with passive and active ROM of the thumb. Full abduction/adduction thumb comparable to contralateral thumb. Diffuse swelling present right thumb to right wrist extending to proximal volar forearm. Patient reports this has improved in comparison to yesterday. Wrist ROM: ext/flex: 20/45 degrees (contralateral wrist 20/45 degrees). Pronation/supination: 85/80 degrees (contralateral 85/80 degrees). CMS intact with 2+ radial pulse. [place], warm digits with brisk capillary refill. Sensation and motor function confirmed along the radial, median and ulnar nerve distributions. Const Vital Signs, click to edit/add: Vital Signs - 24 hr 04/18/23 13:51 04/18/23 17:33 04/18/23 19:27 Temperature 98.8 F 100.3 F H 101.1 F H Pulse Rate [Left Radial] 114 H Pulse Rate [Right Pulse Oximeter] 110 H Respiratory Rate 18 18 Blood Pressure [Left Arm] 182/99 H Blood Pressure [Left Upper Arm] 186/82 H Pulse Oximetry 100 98 Oxygen Delivery Method Room Air 04/18/23 19:31 04/18/23 21:16 04/19/23 02:06 Temperature 101.1 F H 98.7 F 99.5 F Pulse Rate [Left Radial] 101 H 77 Pulse Rate [Right Pulse Oximeter] Respiratory Rate 18 16 Blood Pressure [Left Arm] 153/75 H 127/64 Blood Pressure [Left Upper Arm] Pulse Oximetry 98 95 Oxygen Delivery Method Room Air Room Air 04/19/23 05:57 Temperature 98.9 F Pulse Rate [Left Radial] Pulse Rate [Right Pulse Oximeter] Respiratory Rate 18 Blood Pressure [Left Arm] Blood Pressure [Left Upper Arm] Pulse Oximetry Oxygen Delivery Method Documenting provider has reviewed patient's vital signs: yes Results Labs Labs: Laboratory Results - last 48 hr 04/18/23 04/18/23 04/19/23 14:54 15:49 05:47 WBC 16.73 H 14.36 H RBC 4.25 3.52 L Hgb 13.0 10.9 L Hct 40.2 32.7 L MCV 95 93 MCH 31 31 MCHC 32 33 RDW Coeff of Suzi 13.3 13.5 Plt Count 351 271 Neut % (Auto) 88.4 H 78.8 H Lymph % (Auto) 4.3 L 11.8 L [place] % (Auto) 6.2 8.9 Eos % (Auto) 0.0 0.1 Baso % (Auto) 0.1 0.1 Neut # (Auto) 14.80 H 11.30 H Lymph # (Auto) 0.70 L 1.70 [place] # (Auto) 1.00 H 1.30 H Eos # (Auto) 0.00 0.00 Baso # (Auto) 0.00 0.00 Abs Immat Gran (auto) 0.20 0.00 Imm/Tot Granulo (auto) 1.0 0.3 Sodium 138 Potassium 3.9 Chloride 99 Carbon Dioxide 26 Anion Gap 13 BUN 24 Creatinine 0.9 Estimated Creat Clear 35.66 Estimated GFR 62 Glucose 115 Lactate 1.0 0.6 Calcium 10.6 Assessment and Plan Assessment and plan (1) Cat bite: Problem comment: - TDAP updated - notably, cat was not vaccinated against rabies but has shown no signs or symptoms of illness; it is in the care of family and will be monitored Status: Acute Total time spent: Total time spent is greater than 50% in coordination of care (as documented) at patient's floor/unit and/or counseling patient: (2) Cellulitis of hand, right: Problem comment: - continue Unasyn, follow white blood count and inflammatory markers Status: Acute Assessment and Plan: Appreciate the Orthopedic consult, requested by Dr. Garcia. Non-operative treatment is recommended. There is no palpable abscess or fluid collection. The patient is nontender over her FPL, EPL and EPB. [place] signs all negative. Patient does not require an incision and drainage at this time. Yin's erythema, swelling and pain continues to improve with IV Unasyn. Recommend continue IV antibiotic therapy and observation. Immobilization with a thumb spica brace is not necessary. Instead, I encouraged Yin to work on right thumb/wrist range of motion as tolerated. Patient has an upcoming appointment on 04/[address] Trindiad for her right shoulder. Notify Orthopedics with any questions or concerns in the meantime. Total time spent: Total time spent is greater than 50% in coordination of care (as documented) at patient's floor/unit and/or counseling patient:
[2023-04-19 08:06] VITALS: BP 137/68; PULSE 82; RESP 12; TEMP 37.2; O2SAT 97
[2023-04-19] MEDS: AMLODIPINE 5 MG TABLET PO (09:05)
[2023-04-19] MEDS: LORATADINE 10 MG TABLET PO (09:05)
[2023-04-19] MEDS: SODIUM CHLORIDE 0.9 % (FLUSH) 10 ML SYRINGE 5 ML IVF (09:07)
[2023-04-19 11:22] VITALS: BP 149/69; PULSE 88; RESP 16; TEMP 37.4; O2SAT 96
--- NOTE | 2023-04-19 15:02 | P.DS_ITS ---
DS: Providers Provider Date Seen: 04/19/23 Date of admission: 04/18/23 16:32 Primary care physician: Adela Contreras MD Admitting Clinician: Valerie Garcia MD Attending Physician on discharge: Kush Yao MD Date of Discharge: 04/19/23 DS: Diagnosis Discharge Diagnosis (1) Cellulitis of hand, right: Status: Acute Problem details: Cat bite on April 15. Developed cellulitis and lymphangitis to the axilla over the next 3 days. Now much improved. Improved with Unasyn in the hospital. Discharge on Augmentin. Follow-up with Dr. Trinidad next week (2) Cat bite: Status: Acute Problem details: - TDAP updated September 2022 - notably, cat was not vaccinated against rabies but has shown no signs or symptoms of illness; it is in the care of family and will be monitored. Cat has never been outside DS: Summary Hospital Course Hospital Course: 88-year-old female with caring for her daughter's cat. She was petting the cat and the cat bit her hand near the 1st MTP joint. This occurred on April 15. Over the subsequent 2-3 days she developed cellulitis and lymphangitis extending up her arm to the axilla. In the emergency department she was felt to have a cat bite cellulitis. She did not have any obvious swelling of the joints or stiffness in the joints or fingers. She was not thought to have a tenosynovitis. She was treated with Unasyn and over the 1st day in the hospital had marked improvement in her redness and swelling in her arm. She has follow-up with Dr. Trinidad for a shoulder problem. She will also have him recheck her cellulitis next week Status at Discharge Functional status at discharge: independent ambulation Overall status at discharge: patient is progressing back to baseline Time Spent with Patient Time attestation: Total time spent providing and/or coordinating discharge services: 50 minutes Time spent: Greater than 30 minutes Exam Narrative: Exam Narrative: Right arm is examined. She has erythema over the thenar aspect of her hand going up the radial side of her forearm and then the medial arm up to the axilla. She has intact sensation and motion in her fingers and wrist without discomfort or stiffness. Palpation shows no significant focal tenderness. There is no apparent subcutaneous fluid collection. She is examined early this morning and then this afternoon about 3:00 p.m. and there was already significant improvement in that brief period of monitoring. Const: Vital Signs, click to edit/add: Vital Signs - 24 hr 04/18/23 17:33 04/18/23 19:27 04/18/23 19:31 Temperature 100.3 F H 101.1 F H 101.1 F H Pulse Rate [Left R adial] 114 H 101 H Respiratory Rate 18 18 Blood Pressure [Le ft Arm] 182/99 H 153/75 H Pulse Oximetry 98 98 Oxygen Delivery Me thod Room Air Room Air 04/18/23 21:16 04/19/23 02:06 04/19/23 05:57 Temperature 98.7 F 99.5 F 98.9 F Pulse Rate [Left R adial] 77 Respiratory Rate 16 18 Blood Pressure [Le ft Arm] 127/64 Pulse Oximetry 95 Oxygen Delivery Me thod Room Air 04/19/23 08:06 04/19/23 08:06 04/19/23 11:22 Temperature 98.9 F 99.4 F Pulse Rate [Left R adial] 82 82 88 Respiratory Rate 12 12 16 Blood Pressure [Le ft Arm] 137/68 149/69 H Pulse Oximetry 97 96 Oxygen Delivery Me thod Room Air Room Air Documenting provider has reviewed patient's vital signs: yes DS: Data Data Completed and Pending Labs on day of discharge: Labs from last 24 hours 04/19/23 04/18/23 04/18/23 05:47 15:49 14:54 WBC 14.36 H 16.73 H RBC 3.52 L 4.25 Hgb 10.9 L 13.0 Hct 32.7 L 40.2 MCV 93 95 MCH 31 31 MCHC 33 32 RDW Coeff of Suzi 13.5 13.3 Plt Count 271 351 Neut % (Auto) 78.8 H 88.4 H Lymph % (Auto) 11.8 L 4.3 L [place] % (Auto) 8.9 6.2 Eos % (Auto) 0.1 0.0 Baso % (Auto) 0.1 0.1 Neut # (Auto) 11.30 H 14.80 H Lymph # (Auto) 1.70 0.70 L [place] # (Auto) 1.30 H 1.00 H Eos # (Auto) 0.00 0.00 Baso # (Auto) 0.00 0.00 Abs Immat Gran (auto) 0.00 0.20 Imm/Tot Granulo (auto) 0.3 1.0 Sodium 134 L 138 Potassium 3.9 3.9 Chloride 100 99 Carbon Dioxide 27 26 Anion Gap 7 13 BUN 18 24 Creatinine 0.9 0.9 Estimated Creat Clear 35.66 35.66 Estimated GFR 62 62 Glucose 106 115 Lactate 0.6 1.0 Calcium 9.6 10.6 C-Reactive Protein 6.9 H Discharge Plan Discharge Disposition: Home, Self-Care Date of Admission: 04/18/23 16:32 Attending Provider on Discharge: Aaron Yao Consulting Providers: Keerthi Sosa Primary Care Provider: Adela Contreras Condition: Stable Anticipated Discharge Date/Time: 04/19/23 16:00 Discharge Medications: New amoxicillin-pot clavulanate 875-125 mg tablet 1 tab PO BID Qty: 14 0RF Continued gabapentin 300 mg capsule 300 mg PO QHS amlodipine 5 mg tablet 5 mg PO DAILY Qty: 90 4RF atorvastatin 10 mg tablet 10 mg PO .QHS Qty: 90 4RF Biotin Plus Keratin 10,000-100 mcg-mg tablet 1 tab PO DAILY vitamin E (dl, acetate) 450 mg (1,000 unit) capsule 450 mg PO DAILY multivitamin with iron Tablet 1 tab PO QDAY calcium carbonate-vitamin D3 600 mg-25 mcg (1,000 unit) capsule 1 cap PO DAILY loratadine 10 mg tablet 10 mg PO DAILY famotidine 10 mg tablet 10 mg PO QDAY PRN polyethylene glycol 3350 [Miralax] 17 gram/dose powder 4 g PO BID melatonin 10 mg capsule 10 mg PO QDAY Discharge Orders: Discharge Order (Routine); Ordered 04/19/23 Ordered By: Aaron Yao Additional Instructions: Return to the emergency department if you have worsening pain or redness or swelling in your arm or fever. See Dr. Trinidad next Saturday as previously scheduled for recheck of your shoulder and your cellulitis. Activity Level: No Restrictions Discharge Diet: Regular Follow Up Appointments: Adela Contreras MD [Primary Care Provider] - (Follow-up if needed.) Forms: [facility] Info Instructions
--- NOTE | 2023-04-19 16:33 | PC.NURSE ---
Discharge: Patient pleasant and cooperative. Patient vitally stable, lungs clear, BS WNL, IV removed, catheter intact. Patient denies pain and independent in room. Right extremity is reddened and swollen, but redness are receding from outline. Patient signed belongings sheet and discharge form, had no further questions regarding discharge. Patient left the floor by foot to home at 1623.
== END 2023-04-19 16:23 | disposition home or self-care (01) ==
LOC: ED 14:19 → MEDSURG 16:32
PROVIDERS: Admitting Provider Family Medicine; Emergency Provider Student in an Organized Health Care Education/Training Program; PCP Family Medicine; Visit Provider Family Medicine
DX: L03.113 Cellulitis of right upper limb (principal); R22.31 Localized swelling, mass and lump, right upper limb; I10 Essential (primary) hypertension; M79.641 Pain in right hand; L53.9 Erythematous condition, unspecified; E78.5 Hyperlipidemia, unspecified; W55.01XA Bitten by cat, initial encounter; Z98.890 Other specified postprocedural states; Z90.49 Acquired absence of other specified parts of digestive tract; Z98.49 Cataract extraction status, unspecified eye; Z87.39 Personal history of other diseases of the musculoskeletal system and connective tissue; R00.0 Tachycardia, unspecified; Z66 Do not resuscitate
CPT/HCPCS: 36415; 80048; 83605; 85025; 86140; 87040; 96365; 96366; 99283; 99284; A9270; G0378; J0295

== ENCOUNTER 2023-07-08 11:13 | Outpatient (CLI) | payer MEDICARE, SELFPAY ==
--- NOTE | 2023-07-08 11:30 | CRLHL7_ITS ---
For Patients: As a result of the Century Cures Act, medical imaging exams and procedure reports are released immediately into your electronic medical record. You may view this report before your referring provider. If you have questions, please contact your health care provider. BILATERAL SCREENING MAMMOGRAM WITH COMPUTER-AIDED DETECTION AND TOMOSYNTHESIS TECHNIQUE: CC and MLO views were obtained. These mammographic images have been obtained using full-field digital technique. These mammographic images were interpreted with the benefit of computer-aided detection. Breast Tomosynthesis was used in this interpretation. COMPARISON FILM: 06/15/22, 05/02/21, 04/15/20. FINDINGS: The breasts are extremely dense, which lowers the sensitivity of mammography IMPRESSION: There is no radiographic evidence for malignancy. ASSESSMENT: BI-RADS Category 2: Benign RECOMMENDATION: Routine screening mammogram in 1 year. A lay language report of this examination will be provided to the patient. Chris Mary M.D. Diagnostic/Nuclear Medicine Radiologist [email or web address] MOSHE/Dictated by: Chris Mary MD @ 07/08/2023 12:02:00 PM (Electronically Signed)
== END 2023-07-08 11:14 | disposition home or self-care (01) ==
LOC: MAMMO 11:14
PROVIDERS: PCP Family Medicine; Visit Provider Family Medicine
DX: Z12.31 Encounter for screening mammogram for malignant neoplasm of breast (principal); R92.2 Inconclusive mammogram
CPT/HCPCS: 77063; 77067

== ENCOUNTER 2023-07-24 10:00 | Outpatient (RCR) | payer MEDICARE, SELFPAY | END 2023-07-24 12:05 | disposition home or self-care (01) | PROVIDERS: PCP Family Medicine; Visit Provider Orthopaedic Surgery | DX: M75.101 Unspecified rotator cuff tear or rupture of right shoulder, not specified as traumatic (principal); M25.511 Pain in right shoulder; Z74.09 Other reduced mobility; R29.898 Other symptoms and signs involving the musculoskeletal system; Z51.89 Encounter for other specified aftercare | CPT/HCPCS: 97110; 97161 ==

== ENCOUNTER 2023-09-17 08:15 | Outpatient (CLI) | payer MEDICARE, SELFPAY | END 2023-09-17 08:16 | disposition home or self-care (01) | LOC: NFLDREF 09-18 10:52 | PROVIDERS: PCP Family Medicine; Referring Provider Family Medicine; Visit Provider Family Medicine | DX: E78.5 Hyperlipidemia, unspecified (principal); I10 Essential (primary) hypertension; M85.80 Other specified disorders of bone density and structure, unspecified site; R73.03 Prediabetes | CPT/HCPCS: 80053; 80061; 82306 ==

== ENCOUNTER 2023-11-04 09:33 | Outpatient (CLI) | payer MEDICARE, SELFPAY ==
--- NOTE | 2023-11-04 09:45 | US_ITS ---
Patient: GWEN TRAORE Facility:?[facility] Patient ID:?[id number] Site Patient ID:?[id number]. Site :?[id number] Study:?US-OB Pelvis TA/TV Pelvic US-11/04/2023 10:50:11 AM Ordering Physician:?Randee Paz Final Report: INDICATION: Ovarian cyst and fibroids. Postmenopausal. TECHNIQUE: Transabdominal and transvaginal pelvic ultrasound with grayscale and duplex Doppler images. COMPARISON: 10/01/2022, 09/22/2021, 02/21/2021 pelvic ultrasound. FINDINGS: Uterus is retroverted and measures 5.3 x 3.1 x 4.6 cm. Endometrial stripe thickness is 3 mm. Multiple uterine fibroids noted measuring up to 2.2 cm. Right ovarian simple cyst measures 6.5 x 4.6 x 6.2 cm. This measured 6.0 x 5.4 x 4.0 cm on 10/01/2022 and 5.4 x 3.7 x 5.0 cm on 02/21/2021. Left ovary appears normal. Both ovaries have normal Doppler flow. No free fluid. IMPRESSION: 1. Slowly growing simple cyst in the right ovary measuring 6.5 cm in long axis dimension today. In 2020 it measured 5.4 cm. 2. Multiple uterine fibroids. Dictated by Ajay Bolaños MD @ 11/05/2023 9:16:02 AM Signed by:?Ajay Bolaños MD @11/05/2023 9:16:02 AM (Electronic Signature)
== END 2023-11-04 09:34 | disposition home or self-care (01) ==
LOC: US 09:34
PROVIDERS: PCP Family Medicine; Visit Provider Obstetrics & Gynecology
DX: N83.209 Unspecified ovarian cyst, unspecified side (principal); D25.9 Leiomyoma of uterus, unspecified; N83.201 Unspecified ovarian cyst, right side; Z78.0 Asymptomatic menopausal state
CPT/HCPCS: 76830; 76856; 93976

== ENCOUNTER 2024-06-16 14:30 | Outpatient (RCR) | payer MEDICARE, SELFPAY | END 2024-09-15 13:46 | disposition home or self-care (01) | PROVIDERS: PCP Family Medicine; Visit Provider Family Medicine | DX: M53.3 Sacrococcygeal disorders, not elsewhere classified (principal); M51.369 Other intervertebral disc degeneration, lumbar region without mention of lumbar back pain or lower extremity pain; M47.816 Spondylosis without myelopathy or radiculopathy, lumbar region; G89.29 Other chronic pain; M76.01 Gluteal tendinitis, right hip; M76.02 Gluteal tendinitis, left hip; M54.50 Low back pain, unspecified; M62.81 Muscle weakness (generalized); Z74.09 Other reduced mobility; Z51.89 Encounter for other specified aftercare | CPT/HCPCS: 97110; 97140; 97161 ==

== ENCOUNTER 2024-07-22 11:14 | Outpatient (CLI) | payer MEDICARE, SELFPAY ==
--- NOTE | 2024-07-22 11:30 | CRLHL7_ITS ---
For Patients: As a result of the Century Cures Act, medical imaging exams and procedure reports are released immediately into your electronic medical record. You may view this report before your referring provider. If you have questions, please contact your health care provider. BILATERAL SCREENING MAMMOGRAM WITH COMPUTER-AIDED DETECTION AND TOMOSYNTHESIS, 07/22/2024 TECHNIQUE: CC and MLO views were obtained. These mammographic images have been obtained using full-field digital technique. These mammographic images were interpreted with the benefit of computer-aided detection. Breast Tomosynthesis was used in this interpretation. COMPARISON FILM: 07/08/23, 06/15/22, 05/02/21. FINDINGS: The breasts are heterogeneously dense, which may obscure small masses IMPRESSION: There is no radiographic evidence for malignancy. ASSESSMENT: BI-RADS Category 2: Benign RECOMMENDATION: Routine screening mammogram in 1 year. A lay language report of this examination will be provided to the patient. Jas Ríos M.D. Diagnostic Radiologist [email or web address] TJ/demetria: Transcribed: 9:07 am DW/Dictated by: Jas Ríos MD @ 07/22/2024 1:06:00 PM (Electronically Signed)
== END 2024-07-22 11:15 | disposition home or self-care (01) ==
LOC: MAMMO 11:14
PROVIDERS: PCP Family Medicine; Visit Provider Family Medicine
DX: Z12.31 Encounter for screening mammogram for malignant neoplasm of breast (principal); R92.333 Mammographic heterogeneous density, bilateral breasts
CPT/HCPCS: 77063; 77067

== ENCOUNTER 2024-08-18 07:56 | Outpatient (CLI) | payer MEDICARE, SELFPAY ==
--- OUTSIDE RECORDS SUMMARY | 2024-08-13 12:02 | XMS_ITS | Clinical Summary ---
Author Organization [facility] Address [place], [place] [address] Care Team Providers Care Artificial Leather Calender Operator Name Role Phone Adela Contreras MD Primary Care Provider + Allergies Active Allergy Reactions Criticality Noted Date Comments House Dust Itching 01/02/2019 Grass Pollen Cough 01/02/2019 Mold Cough 01/02/2019 Medications CALCIUM 600 + D 600 MG-125 UNIT TAB 2 po daily 0 7 Active gabapentin (NEURONTIN) 100 mg capsule 8 Active atorvastatin (LIPITOR) 10 mg tablet 7 Active multivitamin-min erals therapeutic (THERAGRAN-M) tablet Daily Active Vitamin E 100 unit/0.25 mL drop Active amLODIPine (NORVASC) 2.5 mg tablet 9 Active Surgical ShoeIndications: Hammer toe, unspecified laterality For home use. 1 unit 9 Active Additional Information Patient not taking.Reported on 07/14/2024 Active Problems Problem Noted Date Diagnosed Date Hammertoe 01/05/2019 Hammertoe of right foot 01/05/2019 Routine adult health maintenance 05/05/2018 Overview (05/05/2018): Colonoscopy 04/2018 normal, no follow up needed Abdominal pain, epigastric 12/30/2006 Other and unspecified hyperlipidemia Esophageal reflux Encounters Date Type Department Care Team Description 07/28/2024 8:40 AM DYED YARN OPERATOR Office Visit [facility] [address] [place] [address] Kevin Cardenas MD Musculoskeletal Problem (Follow-up Low Back Pain ) 07/28/2024 Travel 07/20/2024 8:45 AM DYED YARN OPERATOR Ancillary Procedure [facility] [address] [place] [address] 07/20/2024 Travel 07/14/2024 12:00 PM DYED YARN OPERATOR Ancillary Procedure [facility] [address] [place] [address] 07/14/2024 11:45 AM DYED YARN OPERATOR Ancillary Procedure [facility] [address] [place] [address] 07/14/2024 10:20 AM DYED YARN OPERATOR Office Visit [facility] [address] [place] [address] Kevin Cardenas MD Musculoskeletal Problem (Consultation for Low Back Pain ) 07/14/2024 Travel from Last 3 Months Immunizations Name Administration Dates Next Due Influenza, IIV3 (Age >=3 years) 06/12/2006 Td (Age >=7 Years) 10/05/2002 Family History Medical History Relation Name Comments Cancer Brother Bladder CA Cancer Father Sinuses in 80's Cancer-breast Sister Relation Name Status Comments Brother Father Sister Social History Tobacco Use Types Packs/Day Years Used Date Smoking Tobacco: Never Smokeless Tobacco: Never Tobacco Cessation:Counseling Given: Yes Alcohol Use Standard Drinks/Week Comments No 0 (1 standard drink = 0.6 oz pur e alcohol) Comments No Sex and Gender Information Value Date Recorded Sex Assigned at Not on file Legal Sex Female 6:18 AM DYED YARN OPERATOR Gender Identity Not on file Sexual Orientation Not on file Obstetrics History Last Filed Vital Signs Vital Sign Reading Time Taken Comments Blood Pressure 131/70 07/28/2024 8:48 AM DYED YARN OPERATOR Pulse 80 07/28/2024 8:48 AM DYED YARN OPERATOR Temperature 36.6 C (97.9 F) 04/23/2024 8:39 AM CDT Respiratory Rate 16 08/24/2019 9:40 AM DYED YARN OPERATOR Oxygen Saturation 100% 07/28/2024 8:48 AM DYED YARN OPERATOR Inhaled Oxygen Concentration - - Weight 62 kg (136 lb 11.2 oz) 07/14/2024 10:30 A M DYED YARN OPERATOR Height 165.1 cm (5' 5) 01/02/2019 11:44 AM CDT Body Mass Index 22.75 01/02/2019 11:44 AM CDT Plan of Treatment Upcoming Encounters Date Type Department Care Team (Late st Contact Info) Description 08/18/2024 8:40 AM DYED YARN OPERATOR Office Visit [facility] [address] [place] [phone] Joseph Streeter MD [address] [place] [address] 09/08/2024 8:15 AM DYED YARN OPERATOR Office Visit [facility] [address] [place] [address] Kevin Cardenas MD [address] [place] [address] Health Maintenance Due Date Last Done Comments Tdap 02/18/1947 Depression screening for age 12+ 1948 BMI (ht and wt on same day) for age 18+ 02/18/1954 Pneumococcal series for age 50+ (1 of 1 - PCV) 02/18/1986 Zoster (shingles) series for age 50+ (1 of 2) 02/18/1986 DEXA/DXA scan for age 65+ 02/18/2001 Medicare Wellness for age 65+ 02/18/2001 RSV vaccine for adults or (1 - 1-dose 75+ series) 02/18/2011 Tetanus booster 10/05/2012 10/05/2002 Influenza for age 65+ 04/12/2024 06/12/2006 COVID-19 vaccine series Completed 05/11/20, 04/27/2022, 11/17/2021, Additional history exists Procedures Procedure Name Priority Date/Time Associated Diagnosis Comments MR SPINE LUMBAR WO Routine 07/20/2024 9: 21 AM DYED YARN OPERATOR Degeneration of intervertebral disc of lumbar region with discogenic back pain Lumbar facet arthropathy Gluteal tendinitis of both buttocks XR SACROILIAC JOINT 3 VIEWS BILATERAL Routine 07/14/2024 11:53 AM DYED YARN OPERATOR Chronic SI joint pain XR SPINE LUMBAR 3 VIEWS Routine 07/14/2024 11:52 AM DYED YARN OPERATOR Degeneration of intervertebral disc of lumbar region with discogenic back pain from Last 3 Months Results * MR SPINE LUMBAR WO (07/20/2024 9:21 AM DYED YARN OPERATOR) Anatomical Region Laterality Modality Spine, LUMBAR SPINE Magnetic Res onance 07/20/2024 1:29 PM DYED YARN OPERATOR Impressions 07/20/2024 1:29 PM DYED YARN OPERATOR 1. Degenerative grade 1 anterolisthesis of L5 on S1. 2. Otherwise normal alignment. No fractures 3. Lumbar spondylosis 4. At L2-3, Moderate to severe narrowing of the spinal canal. Potential impingement of the traversing L3 nerve roots. Moderate narrowing of the bilateral neural foramina 5. At L3-4, severe narrowing of the spinal canal. Potential impingement of the traversing L4 nerve roots. Moderate to severe right and moderate left neural foraminal narrowing. 6. At L4-5, moderate narrowing of the spinal canal. Moderate to severe narrowing of the left neural foramina. 7. At L5-S1, moderate to severe narrowing of the left neural foramen Dictated by Raghavendra Kidd MD @ 07/20/2024 1:29:54 PM (Electronically Signed) Narrative 07/20/2024 1:29 PM DYED YARN OPERATOR For Patients: As a result of the Century Cures Act, medical imaging exams and procedure reports are released immediately into your electronic medical record. You may view this report before your referring provider. If you have questions, please contact your health care provider. INDICATION: Gluteal pain. Low back pain. COMPARISON: 07/14/2024. TECHNIQUE: Sagittal T1, T2, and STIR sequences. Axial T1 and T2 weighted sequences. FINDINGS: Lumbar curve convex the left. In sagittal plane, degenerative grade 1 anterolisthesis of L5 on S1 measures approximately 4 mm. Otherwise, normal alignment. No fractures. No vertebral body loss of height. No ligamentous injury. No suspicious osseous lesions. Normal conus terminates at L1. Focal low T1 and T2 signal intensity lesion of the L1 vertebral body with subtle internal striations likely represented atypical hemangioma. No suspicious osseous lesions. Normal conus terminates at L1-2. T12-L1 and L1-2: No spinal canal or neural foraminal narrowing. L2-3: Disc degeneration and posterior disc bulge. Combined with ligament flavum facet hypertrophy, there is moderate severe narrowing of spinal canal. Bilateral subarticular recess narrowing with potential impingement of the traversing L3 nerve roots. Moderate narrowing of bilateral foramina. Mild facet arthropathy. L3-4: Disc degeneration posted disc bulge. Combined with ligament flavum facet hypertrophy, there is severe narrowing of spinal canal. Bilateral subarticular recess narrowing and impingement of the traversing L4 nerve roots. Moderate severe right and moderate left neural foraminal narrowing. Moderate arthropathy. L4-5: Disc degeneration loss disc height. Modic type 1 endplate changes. Posterior disc bulge. Combined facet arthropathy, there is moderate narrowing of spinal canal. Bilateral subarticular recess narrowing potential impingement of the traversing L5 nerve roots. Mild right and moderate severe left neural foraminal narrowing. Potential impingement of the exiting left L4 nerve root. Mild facet arthropathy. L5-S1: Disc degeneration and posterior disc bulge. No narrowing of spinal canal. No impingement of the traversing S1 nerve roots. Mild right and moderate severe left neural foraminal narrowing. Potential impingement of the left L5 nerve root. Moderate facet arthropathy. Degenerative changes of the SI joints. Normal paraspinal soft tissues. Procedure Note Raghavendra Kidd MD, PhD - 07/20/2024 For Patients: As a result of the Century Cures Act, medical imagingexams and procedure reports are released immediately into your electronicmedical record. You may view this report before your referring provider.If you have questions, please contact your health care provider. INDICATION: Gluteal pain. Low back pain. COMPARISON: 07/14/2024. TECHNIQUE: Sagittal T1, T2, and STIR sequences. Axial T1 and T2 weighted sequences. FINDINGS: Lumbar curve convex the left. In sagittal plane, degenerative grade 1anterolisthesis of L5 on S1 measures approximately 4 mm. Otherwise, normalalignment. No fractures. No vertebral body loss of height. No ligamentousinjury. No suspicious osseous lesions. Normal conus terminates at L1. Focal low T1 and T2 signal intensity lesion of the L1 vertebral body withsubtle internal striations likely represented atypical hemangioma. No suspicious osseous lesions. Normal conus terminates at L1-2. T12-L1 and L1-2: No spinal canal or neural foraminal narrowing. L2-3: Disc degeneration and posterior disc bulge. Combined with ligamentflavum facet hypertrophy, there is moderate severe narrowing of spinalcanal. Bilateral subarticular recess narrowing with potential impingementof the traversing L3 nerve roots. Moderate narrowing of bilateralforamina. Mild facet arthropathy. L3-4: Disc degeneration posted disc bulge. Combined with ligament flavumfacet hypertrophy, there is severe narrowing of spinal canal. Bilateralsubarticular recess narrowing and impingement of the traversing L4 nerveroots. Moderate severe right and moderate left neural foraminal narrowing.Moderate arthropathy. L4-5: Disc degeneration loss disc height. Modic type 1 endplate changes.Posterior disc bulge. Combined facet arthropathy, there is moderatenarrowing of spinal canal. Bilateral subarticular recess narrowingpotential impingement of the traversing L5 nerve roots. Mild right andmoderate severe left neural foraminal narrowing. Potential impingement ofthe exiting left L4 nerve root. Mild facet arthropathy. L5-S1: Disc degeneration and posterior disc bulge. No narrowing of spinalcanal. No impingement of the traversing S1 nerve roots. Mild right andmoderate severe left neural foraminal narrowing. Potential impingement ofthe left L5 nerve root. Moderate facet arthropathy. Degenerative changes of the SI joints. Normal paraspinal soft tissues. IMPRESSION: 1. Degenerative grade 1 anterolisthesis of L5 on S1. 2. Otherwise normal alignment. No fractures 3. Lumbar spondylosis 4. At L2-3, Moderate to severe narrowing of the spinal canal. Potentialimpingement of the traversing L3 nerve roots. Moderate narrowing of thebilateral neural foramina 5. At L3-4, severe narrowing of the spinal canal. Potential impingement ofthe traversing L4 nerve roots. Moderate to severe right and moderate leftneural foraminal narrowing. 6. At L4-5, moderate narrowing of the spinal canal. Moderate to severenarrowing of the left neural foramina. 7. At L5-S1, moderate to severe narrowing of the left neural foramen Dictated by Raghavendra Kidd MD @ 07/20/2024 1:29:54 PM (Electronically Signed) Kevin Cardenas MD MR Final Res ult * XR SACROILIAC JOINT 3 VIEWS BILATERAL (07/14/2024 11:53 AM DYED YARN OPERATOR) Anatomical Region Laterality Modality Pelvis, SI JOINTS Computed Radio graphy Impressions 07/16/2024 9:02 PM DYED YARN OPERATOR No findings for sacroiliitis. Normal alignment. Mild bilateral degenerative changes. Advanced lower lumbar spondylosis. Dictated by Phoenix Fraire MD @ 07/15/2024 12:22:02 PM (Electronic Signature) Narrative 07/16/2024 9:02 PM DYED YARN OPERATOR For Patients: As a result of the Cures Act, medical imaging exams and procedure reports are released immediately into your electronic medical record. You may view this report before your referring provider. If you have questions, please contact your health care provider. INDICATION: Chronic SI joint pain TECHNIQUE: Three views bilateral sacroiliac joints COMPARISON: Same-day lumbar spine FINDINGS: The SI joints are symmetric with minor inferior degenerative changes. No evidence for inflammatory or erosive changes. No sacral or iliac bone abnormalities. Advanced lower lumbar spondylosis. Kevin Cardenas MD GENERAL IMAGING Final Res ult * XR SPINE LUMBAR 3 VIEWS (07/14/2024 11:52 AM DYED YARN OPERATOR) Anatomical Region Laterality Modality LUMBAR SPINE Computed Radiogr aphy Impressions 07/16/2024 9:02 PM DYED YARN OPERATOR Multilevel lumbar spondylosis with left convex rotoscoliosis. Grade I anterolisthesis of L5 on S1. Dictated by Phoenix Fraire MD @ 07/15/2024 12:13:23 PM (Electronic Signature) Narrative 07/16/2024 9:02 PM DYED YARN OPERATOR For Patients: As a result of the Cures Act, medical imaging exams and procedure reports are released immediately into your electronic medical record. You may view this report before your referring provider. If you have questions, please contact your health care provider. INDICATION: Back pain TECHNIQUE: Lumbar spine 3 views COMPARISON: None. FINDINGS: Bones: Left convex rotoscoliosis centered at L2. Diffuse bone demineralization. No fractures or focal bone lesions. Subchondral sclerosis at L4-5. Joints: Disc space narrowing at all levels, most marked at L4-5 and L5-S1 with moderate to marked degenerative changes. Grade I anterolisthesis of L5 on S1. Advanced facet arthrosis L4 to S1 with less marked changes elsewhere. Soft tissues: Advanced arterial calcifications. Cholecystectomy clips. Kevin Cardenas MD GENERAL IMAGING Final Res ult from Last 3 Months Insurance [facility] MEDICARE ADVANTAGE MR Advance Directives * Full Code (Latest Code Status on File) Date Activated Date Inactivated Comments 01/06/2019 8:29 AM 01/06/2019 3:29 PM Care Teams Artificial Leather Calender Operator Relationship Specialty Start Date End Date Adela Contreras MD [address] [place] [address] PCP - General Family Practice 09/03/17
== END 2024-08-18 07:57 | disposition home or self-care (01) ==
LOC: INJ CL 07:57
PROVIDERS: PCP Family Medicine; Visit Provider Family Medicine
DX: M54.16 Radiculopathy, lumbar region (principal); M51.369 Other intervertebral disc degeneration, lumbar region without mention of lumbar back pain or lower extremity pain
CPT/HCPCS: 62323; J0702; Q9966

== ENCOUNTER 2024-10-09 08:11 | Outpatient (CLI) | payer MEDICARE, SELFPAY | END 2024-10-09 08:12 | disposition home or self-care (01) | LOC: NFLDREF 10-12 02:00 | PROVIDERS: PCP Family Medicine; Referring Provider Family Medicine; Visit Provider Family Medicine | DX: E78.5 Hyperlipidemia, unspecified (principal); I10 Essential (primary) hypertension; R73.03 Prediabetes; M85.80 Other specified disorders of bone density and structure, unspecified site; M81.0 Age-related osteoporosis without current pathological fracture | CPT/HCPCS: 80053; 80061; 82306 ==

== ENCOUNTER 2024-10-21 13:41 | Outpatient (CLI) | payer MEDICARE, SELFPAY ==
--- NOTE | 2024-10-21 14:00 | CRLHL7_ITS ---
For Patients: As a result of the Century Cures Act, medical imaging exams and procedure reports are released immediately into your electronic medical record. You may view this report before your referring provider. If you have questions, please contact your health care provider. INDICATION: Follow-up ovarian cyst COMPARISON: 11/04/2023 TECHNIQUE: 2D lazo scale and color Doppler images were acquired of the pelvis using a transabdominal and transvaginal approach. FINDINGS: Uterine fibroids are present which measure 1.4 x 1.2 x 1.1 cm in the fundal region adjacent to the endometrium and 1.0 x 0.8 x 0.8 cm within the intramural left fundus. Uterus measures 5.4 cm in length by 3.7 cm in AP diameter by 4.4 cm in transverse dimension. Visualized endometrial lining measures 1.4 mm in composite thickness. The right ovary measures 7.7 x 5.3 x 6.2 cm in size and the left ovary measures 2.1 x 0.9 x 1.0 cm. The ovaries demonstrate normal arterial and venous blood flow on color Doppler analysis. There are no suspicious fluid collections within the cul-de-sac. Circumscribed right ovarian cyst is present with anechoic internal echotexture measuring 6.7 x 5.0 x 5.5 cm, previously measuring 6.5 x 4.6 x 6.2 cm. IMPRESSION: No significant interval change regarding the simple right ovarian cyst. Dictated by Jas Ríos MD @ 10/21/2024 5:52:04 PM (Electronically Signed)
== END 2024-10-21 13:42 | disposition home or self-care (01) ==
LOC: US 13:41
PROVIDERS: PCP Family Medicine; Visit Provider Obstetrics & Gynecology
DX: N83.201 Unspecified ovarian cyst, right side (principal)
CPT/HCPCS: 76830; 76856

== ENCOUNTER 2025-02-23 15:17 | Outpatient (CLI) | payer MEDICARE, SELFPAY | END 2025-02-23 15:18 | disposition home or self-care (01) | LOC: NFLDREF 02-25 17:50 | PROVIDERS: PCP Family Medicine; Referring Provider Family Medicine; Visit Provider Physician Assistant Surgical | DX: N30.00 Acute cystitis without hematuria (principal) | CPT/HCPCS: 87086 ==

== ENCOUNTER 2025-02-26 07:05 | Outpatient (CLI) | payer MEDICARE, SELFPAY | END 2025-02-26 07:06 | disposition home or self-care (01) | LOC: NFLDREF 07:06 | PROVIDERS: PCP Family Medicine; Visit Provider Family Medicine | DX: R30.0 Dysuria (principal); N39.0 Urinary tract infection, site not specified; R35.0 Frequency of micturition | CPT/HCPCS: 87086 ==

== ENCOUNTER 2025-04-07 06:39 | Outpatient (CLI) | payer MEDICARE, SELFPAY | END 2025-04-07 06:40 | disposition home or self-care (01) | LOC: NFLDREF 06:40 | PROVIDERS: PCP Family Medicine; Visit Provider Family Medicine | DX: N39.0 Urinary tract infection, site not specified (principal); B96.20 Unspecified Escherichia coli [E. coli] as the cause of diseases classified elsewhere | CPT/HCPCS: 87086 ==

== ENCOUNTER 2025-05-19 10:45 | Outpatient (CLI) | payer MEDICARE, SELFPAY | END 2025-05-19 10:46 | disposition home or self-care (01) | LOC: NFLDREF 05-24 05:00 | PROVIDERS: PCP Family Medicine; Referring Provider Family Medicine; Visit Provider Family Medicine | DX: R32 Unspecified urinary incontinence (principal); N39.0 Urinary tract infection, site not specified | CPT/HCPCS: 87086 ==